=== PATIENT | male | born 1980 ===

== ENCOUNTER 2017-01-14 17:39 | Inpatient (IN) ==
--- NOTE | 2017-01-14 18:14 | Emergency Department Note ---
Laly Hobbs Hilary, am scribing for, and in the presence of, Aguila Penn MD 18:05. Fili Hobbs Phillip K, MD, personally performed the services described in this documentation, ascribed by Sweetie Ruffin in my presence, and it is both accurate and complete 814 . Arrival - Arrival Chief Complaint: Weakness Stated Complaint: TRANSFER FROM [facility] DKA ED Nursing Triage Note: PT TRANSFERRED FROM [facility] FOR EVALUATION OF DKA. PT PRESENTED TO [facility] WITH WEAKNESS, ABD PAIN, INC THIRST AND URINATION. PT REPORTS BEING OUT OF INSULIN FOR APPROX 1 WEEK. +SERUM KETONES WITH INITIAL GLUCOSE OF 444MG/DL AT [facility]. Mode of Arrival: Stretcher Limitations: No Limitations Source: Patient, RN Notes Reviewed - History of Present Illness HPI Narrative: Pt is a 36 y/o male brought to the ED via EMS from [facility] with c/o weakness and abdominal pain. Pt states he has been out of Insulin for approx 1 week. Positive serum ketones with initial glucose of 444MG/DL at [facility]. Records state he received PO & IV potassium, 10 units of Insulin and 1 liter of fluid. Pt states that the last time he was DKA was 8 months ago. Pt has a PMHx of HTN and takes medication as prescribed. Patient also reports some vomiting. Patient's last time it DKA was 8 months ago. Accu-Chek on arrival to the ED was 282 here. Patient's drug screen was negative and alcohol was negative at [place]. Patient's white blood count was 13,000. Allergies/Adverse Reactions: Allergies Allergy/AdvReac Type Severity Reaction Status Date / Time No Known Allergies Allergy Verified 01/14/17 17:50 Home Medications: Home Medications Medication Instructions Recorded Confirmed Type Insulin NPH [HumuLIN N] 25 unit SUBCUT AC SUPPER 30 Days 05/13/16 Rx Insulin NPH [HumuLIN N] 30 unit SUBCUT AC BREAKFAST 30 Days 05/13/16 Rx Review of System - Review of System 12 point system: reviewed and no additional remarkable complaints except as stated - Review of System Constitutional: Present: weakness. Absent: fever Gastrointestinal: Present: abdominal pain, vomiting Medical,Surgical,& Family Hx - Medical History Cardio: History of: Hypertension Endocrine: History of: Diabetes Mellitus (IDDM) Other: Comment Only: Miscellaneous Medical Problems (left ankle sx and lower jaw sx) - Family History Family History: Reports;: Family Diabetes (mother), Family Hypertension - Social History Smoking Status: Never smoker Frequency of Alcohol Use: Occasionally Type of Drug Use: None Exam Vital Signs: Vital Signs Temperature 99.8 F H 01/14/17 17:39 Pulse Rate 138 H 01/14/17 17:39 Respiratory Rate 16 01/14/17 17:39 Blood Pressure 138/100 01/14/17 17:39 O2 Sat by Pulse Oximetry 99 01/14/17 17:39 - General General appearance: alert, in no apparent distress - Head Head exam: Present: atraumatic, normocephalic - Eye Eye exam: Present: normal appearance, PERRL, EOMI - ENT ENT exam: Present: mucous membranes dry, TM's normal bilaterally - Neck Neck exam: Present: full ROM, trachea midline. Absent: tenderness - Chest Chest inspection: Present: symmetric chest wall rise. Absent: tenderness - Respiratory Respiratory exam: Present: normal lung sounds bilaterally. Absent: respiratory distress - Cardiovascular Cardiovascular exam: Present: normal rhythm, tachycardia, normal heart sounds. Absent: murmur, rubs, gallop - Abdominal Exam Abdominal exam: Present: soft, normal bowel sounds. Absent: distention, tenderness - Extremities Exam Extremities exam: Present: full ROM. Absent: tenderness, pedal edema - Back Exam Back exam: Present: full ROM. Absent: tenderness - Neurological Exam Neurological exam: Present: alert, oriented X3, CN II-XII intact. Absent: motor sensory deficit - Psychiatric Psychiatric exam: Present: normal affect, normal mood - Skin Skin exam: Present: warm, dry, intact, normal color. Absent: rash Disposition Clinical Impression: Diabetic ketoacidosis, Hypokalemia Case discussed with: patient Disposition: Still a Patient Condition: Guarded Additional Instructions: Admitted to the hospitalist.
[2017-01-14] MEDS ORDERED: SODIUM CHLORIDE 0.9% 1,000 ML IV STA (18:15)
[2017-01-14] MEDS ORDERED: DEXTROSE 50% 25 GM/50 ML VIAL IV PRN ×2 (18:56)
[2017-01-14] MEDS ORDERED: ALBUTEROL 2.5 MG/3 ML NEB RESP TX PRN (18:56)
[2017-01-14] MEDS ORDERED: ACETAMINOPHEN 325 MG TABLET PO PRN (18:56)
[2017-01-14] MEDS ORDERED: MAGNESIUM SULF RIDER 2 GM in PREMIX 1 EACH IV PRN (18:56)
[2017-01-14] MEDS ORDERED: SODIUM PHOSPHATE INJ 16.2 MMOL in SODIUM CHLORIDE 0.9% 250 ML IV PRN (18:56)
[2017-01-14] MEDS ORDERED: MAGNESIUM SULF RIDER 4 GM in PREMIX 1 EACH IV PRN (18:56)
[2017-01-14] MEDS ORDERED: SODIUM BICARB INJ 100 MEQ in STERILE WATER INJ 400 ML IV PRN (18:56)
[2017-01-14] MEDS ORDERED: PANTOPRAZOLE 40 MG VIAL IV SCH (19:00)
--- NOTE | 2017-01-14 19:09 | Hospitalist History & Physical ---
Assessment and Plan (1) DKA (diabetic ketoacidoses) Status: Acute Current Visit: No (2) Hypertension Status: Acute Current Visit: No (3) Hypokalemia Status: Acute Assessment and plan: Our plan for this patient will be admission ICU. Patient be put on insulin infusion that will be adjusted based on his Accu-Cheks. Fluids will be adjusted as needed based on Accu-Cheks. We will keep him n.p.o. for now. His gap should close fairly quickly. Get diabetic education to come talk with him. He does not need to be holding his insulin for 2 weeks. Reevaluate patient in the morning and adjust plans as as appropriate Current Visit: Yes History of Present Illness Chief complaint: Transfer from [facility] History of present illness: Mr. Torres is a 36 year old male with past medical history significant for diabetes and hypertension who was in his normal state of health approximately 1 week ago. Patient reports that he has been a diabetic since April of last year. He reports that he ran out of his insulin approximately 2 weeks ago. He just would make time to get his medications. He has been feeling nausea and having abdominal pain for past couple days. He thought his symptoms were mild went to [facility] to get his prescriptions and they thomas some labs patient was found to be in DKA. He was transferred to our hospital for further evaluation I was consulted to admit him to the emergency room. Home Medications Medication Instructions Recorded Confirmed Type Insulin NPH [HumuLIN N] 25 unit SUBCUT AC SUPPER 30 Days 05/13/16 Rx Insulin NPH [HumuLIN N] 30 unit SUBCUT AC BREAKFAST 30 Days 05/13/16 Rx Allergies Allergy/AdvReac Type Severity Reaction Status Date / Time No Known Allergies Allergy Verified 01/14/17 17:50 Medical,Surgical,& Family Hx - Medical History Cardio: History of: Hypertension Endocrine: History of: Diabetes Mellitus (IDDM) Other: Comment Only: Miscellaneous Medical Problems (left ankle sx and lower jaw sx) - Surgical History Orthopedic Surgeries: Surgical HX of;: Orthopedic Surgery - Family History Family History: Reports;: Family Diabetes (mother), Family Hypertension - Social History Smoking Status: Never smoker Frequency of Alcohol Use: Occasionally Type of Drug Use: None 12 point system: reviewed and no additional remarkable complaints except as stated Exam - Constitutional General appearance: over weight, other (Patient is a male but appears feminine) - Head Head exam: Present: normal inspection - Eye Eye exam: Present: EOMI Pupils: Present: KATRIN - ENT ENT exam: Present: normal exam - Neck Neck exam: Present: normal inspection - Respiratory Respiratory exam: Present: clear to auscultation bilaterally - Cardiovascular Cardiovascular exam: Present: tachycardia - GI/Abdominal GI/Abdominal exam: Present: normal bowel sounds - Extremities Exam Extremities exam: Present: normal inspection - Back Exam Back exam: Present: normal inspection - Neurological Exam Neurological exam: Present: alert - Psychiatric Psychiatric exam: Present: normal affect - Skin Skin exam: Present: normal color Results - Labs Labs: Labs from outside facility negative drug screen total protein 7.6 calcium 8.1 creatinine 1.4 BUN 11 sodium 125 potassium 2.8 chloride 87 bicarb 11 total bili 1.5 alk phos 113 SGOT 29 SGPT 39 glucose 441 white count 13.2 hemoglobin 15.7 hematocrit 45 platelets 185
[2017-01-14] MEDS ORDERED: SODIUM CHLORIDE 0.9% 1,000 ML IV SCH (19:30)
[2017-01-14] MEDS: INSULIN REGULAR DRIP 100 ML IV SCH (19:31)
[2017-01-14 19:59] LABS: Basophils % 0.2 % (0.0-0.8); Hematocrit 38.3 VOL% (42.0-52.0); Hemoglobin 13.6 GM/DL (14.0-18.0); Immature Granulocytes % 0.5 %; Immature Granulocytes Absolute 0.06 #; Lymphocytes # 0.8 10*3/uL (1.4-4.0); Lymphocytes % 6.8 % (21.2-54.2); Mean Corpuscular HGB Conc 35.5 GM/DL (32-36); Mean Corpuscular Hemoglobin 31 PG (27-34); Mean Corpuscular Volume 86.7 FL (87-102); Mean Platelet Volume 11.2 FL (9.6-12.0); Monocytes # 0.6 10*3/uL (0.11-0.8); Monocytes % 5.4 % (1.7-12.7); Neutrophils # 9.7 10*3/uL (1.4-7.4); Neutrophils % 87.1 % (38.7-73.9); Platelet Count 162 T/CUMM (130-400); Red Blood Count 4.42 MC/CUMM (3.8-5.5); Red Cell Distribution Width 13.4 % (9.3-17.3); White Blood Count 11.1 T/CUMM (4-12)
[2017-01-14 20:08] LABS: Albumin 2.7 G/DL (3.4-5.0); Bilirubin,Total 0.8 MG/DL (0.2-1.0); Calcium 7.4 MG/DL (8.5-10.1); Osmolality,Calculated 277.1 MOS/KG (273-304); Potassium 3.5 MMOL/L (3.5-5.1); Total Protein 5.8 G/DL (6.4-8.3)
[2017-01-14 20:17] LABS: ABG Base Excess -11.3 MMOL/L (-2.5-2.5); ABG HCO3 11.3 MMOL/L (20-26); ABG Oxygen Saturation 95.7 % (95-100); ABG PH 7.377 (7.35-7.45); ABG PO2 77.4 MM HG (80-95); ABG TCO2 11.9 MMOL/L (23-27); Allen Test Positive; Pt O2 Delivery Device Room Air
[2017-01-14 20:19] LABS: ABG PCO2 19.7 MM HG (35-48)
[2017-01-14] MEDS: ONDANSETRON 4 MG/2 ML VIAL IV PRN (20:31)
[2017-01-14] MEDS: ENOXAPARIN 40 MG/0.4 ML SYRINGE SUBCUT SCH (20:33)
--- NOTE | 2017-01-14 20:33 | XRay Report ---
History: Shortness of breath Date: 01/14/2017 Study: Chest AP portable Comparison exam: Chest x-ray May 10, 2016 The cardiomediastinal silhouette and pulmonary vasculature are unremarkable. The lungs and pleural spaces are clear. The osseous structures are unremarkable. Impression: No acute cardiopulmonary process. No adverse interval change compared to the previous study PROCEDURE INTERPRETED AT [facility] DEPARTMENT OF RADIOLOGY Final Report Signed by: Dr. Betty Winkler
[2017-01-14] MEDS: DEXTROSE 5% NACL 0.9% 1,000 ML IV SCH (21:19)
[2017-01-14] MEDS: POTASSIUM CHLORIDE RIDER 10 MEQ in PREMIX 1 EACH IV PRN ×2 (22:19→23:26)
[2017-01-14 23:30] LABS: Calcium 7.6 MG/DL (8.5-10.1); Osmolality,Calculated 275.8 MOS/KG (273-304); Potassium 2.9 MMOL/L (3.5-5.1)
[2017-01-15] MEDS: POTASSIUM CHLORIDE RIDER 10 MEQ in PREMIX 1 EACH IV PRN ×4 (00:35→08:30)
[2017-01-15] MEDS: DEXTROSE 5% NACL 0.9% 1,000 ML IV SCH (04:15)
[2017-01-15 05:04] LABS: Basophils % 0.4 % (0.0-0.8); Hematocrit 36.6 VOL% (42.0-52.0); Hemoglobin 12.8 GM/DL (14.0-18.0); Immature Granulocytes % 0.5 %; Immature Granulocytes Absolute 0.04 #; Lymphocytes # 0.8 10*3/uL (1.4-4.0); Lymphocytes % 10.3 % (21.2-54.2); Mean Corpuscular Hemoglobin 31 PG (27-34); Mean Corpuscular Volume 87.8 FL (87-102); Mean Platelet Volume 10.8 FL (9.6-12.0); Monocytes # 0.5 10*3/uL (0.11-0.8); Monocytes % 6.7 % (1.7-12.7); Neutrophils % 82.1 % (38.7-73.9); Platelet Count 146 T/CUMM (130-400); Red Blood Count 4.17 MC/CUMM (3.8-5.5); Red Cell Distribution Width 13.5 % (9.3-17.3); White Blood Count 7.3 T/CUMM (4-12)
[2017-01-15 05:31] LABS: Band Neutrophils 8 % (0-10); Hypochromasia 1+; Lymphocytes 11 % (20-55); Nucleated Red Blood Cells 1 (0-5); Platelet Estimate Normal; Segmented Neutrophils 72 % (50-85); Total Cells Counted 100
[2017-01-15 05:36] LABS: Calcium 7.7 MG/DL (8.5-10.1); Osmolality,Calculated 279.4 MOS/KG (273-304); Potassium 2.8 MMOL/L (3.5-5.1)
[2017-01-15 05:37] LABS: Magnesium 1.9 MG/DL (1.8-2.4); Phosphorous 1.2 MG/DL (2.5-4.9)
[2017-01-15] MEDS: INSULIN REGULAR DRIP 100 ML IV SCH (06:07)
[2017-01-15 08:01] LABS: Allen Test Positive
[2017-01-15 08:02] LABS: ABG Base Excess -4.4 MMOL/L (-2.5-2.5); ABG HCO3 18.8 MMOL/L (20-26); ABG Oxygen Saturation 97.7 % (95-100); ABG PCO2 29.5 MM HG (35-48); ABG PH 7.422 (7.35-7.45); ABG PO2 100.1 MM HG (80-95); ABG TCO2 19.7 MMOL/L (23-27)
--- NOTE | 2017-01-15 08:37 | Hospitalist Progress Note ---
Assessment and Plan (1) DKA (diabetic ketoacidoses) Status: Acute Assessment and plan: Labs and insulin coverage. Patient apparently has some insulin reserves and down both episodes of ketoacidosis has reversed rapidly and had moderated acidemia. At this time other than the emesis there is no explanation for the hypokalemia. Current Visit: No Qualifiers: Diabetes mellitus type: type 1 Hospitalist: Subjective Interval history: 36-year-old male diagnosed with diabetes in April 2016 initially did on insulin therapy and instructed in diabetic management. Patient states that he had discontinued his insulin in October. Recently he has noticed this nausea with vomiting. His sister is a nurse and noticed changes felt to be consistent with DKA. Patient presented to the [facility] with an anion gap mildly elevated total CPK with no MB fraction and a blood sugar of 441. His white count was mildly elevated. Drug screen was unremarkable he was acetone positive with a CO2 content of 11 and a potassium of 2.8. Patient was transferred to this facility received IV insulin infusion with correction of hyperglycemia and closure of his anion gap. Initial arterial blood gases performed here were consistent with metabolic acidosis he is currently had a normal pH with mild respiratory alkalosis. He has no nausea this morning vital signs are stable and he is afebrile. Exam - Constitutional Vitals: Period Temp Pulse Resp BP Sys/Mas Pulse Ox Last 24 Hr 97.9 F-101.8 F 96-143 16-32 108-157/74-104 26-100 General appearance: over weight - Respiratory Respiratory exam: Present: clear to auscultation bilaterally. Absent: rales, rhonchi, wheezes - Cardiovascular Cardiovascular exam: Present: regular rate and rhythm - GI/Abdominal GI/Abdominal exam: Present: normal bowel sounds. Absent: distended, tenderness - Extremities Exam Extremities exam: Absent: edema - Neurological Exam Neurological exam: Present: alert, oriented X3 Results - Labs CBC & BMP: 01/15/17 04:37 01/15/17 04:37 Labs: PH 7.42 PCO2 30 PO2 100 base excess -4 - Impressions From [facility] sinus rhythm with normal electrocardiographic pattern - Diagnostic Findings Procedure: Chest x-ray: image reviewed by me (Normal heart size and clear lung field)
[2017-01-15] MEDS ORDERED: GLUCAGON 1 MG VIAL IM PRN ×2 (08:44→08:51)
[2017-01-15] MEDS ORDERED: DEXTROSE 50% 25 GM/50 ML VIAL IV PRN ×2 (08:44→08:51)
[2017-01-15] MEDS: POTASSIUM CHLORIDE 20 MEQ/15 ML UDCUP PO SCH ×4 (09:32→21:20)
[2017-01-15] MEDS: INSULIN NPH 100 UNIT/ML SUBCUT SCH ×2 (09:32→17:41)
[2017-01-15 11:52] LABS: Calcium 7.8 MG/DL (8.5-10.1); Osmolality,Calculated 277.8 MOS/KG (273-304); Potassium 3.8 MMOL/L (3.5-5.1)
[2017-01-15] MEDS ORDERED: SODIUM CHLORIDE 0.45% 1,000 ML IV SCH (11:56)
[2017-01-15] MEDS: INSULIN REGULAR 100 UNIT/ML SUBCUT SCH ×5 (13:17→21:19)
[2017-01-15] MEDS: ONDANSETRON 4 MG/2 ML VIAL IV PRN ×2 (14:51→21:23)
[2017-01-15 16:57] LABS: Calcium 7.9 MG/DL (8.5-10.1); Osmolality,Calculated 279.7 MOS/KG (273-304); Potassium 3.9 MMOL/L (3.5-5.1)
[2017-01-15] MEDS: ENOXAPARIN 40 MG/0.4 ML SYRINGE SUBCUT SCH (21:20)
[2017-01-16 06:17] LABS: Calcium 7.6 MG/DL (8.5-10.1); Magnesium 1.5 MG/DL (1.8-2.4); Potassium 3.2 MMOL/L (3.5-5.1)
--- NOTE | 2017-01-16 06:49 | Hospitalist Progress Note ---
Assessment and Plan (1) DKA (diabetic ketoacidoses) Status: Acute Assessment and plan: Patient apparently has some insulin reserves and both episodes of ketoacidosis have reversed rapidly and had moderate acidemia. At this time other than the emesis there is no explanation for the hypokalemia. Current Visit: No Qualifiers: Diabetes mellitus type: type 1 Hospitalist: Subjective Interval history: 36-year-old male diagnosed with diabetes in April 2016 was admitted with mild ketoacidosis associated with the labs and insulin therapy at home. He had had vomiting prior to admission and in spite of the acidosis had hypokalemia. Has previously responded rapidly to the rastafari of insulin therapy. With potassium replacement he has had some liquid bowel movements a potassium level has not risen to normal on today's draw. He also has a mild decrease in his serum magnesium level. The diarrhea by his report did not antedate his admission to the hospital. He feels well and his capillary blood glucoses have improved and he is being transitioned to intermediate acting insulin. Anticipated discharge will be held to allow for potassium repletion. We in addition we will give a low dose of Questran for the loose bowel movements. Exam - Constitutional Vitals: Period Temp Pulse Resp BP Sys/Mas Pulse Ox Last 24 Hr 97.4 F-100.2 F 103-129 16-23 121-144/75-95 95-100 General appearance: over weight - Respiratory Respiratory exam: Present: clear to auscultation bilaterally. Absent: rales, rhonchi, wheezes - Cardiovascular Cardiovascular exam: Present: regular rate and rhythm - GI/Abdominal GI/Abdominal exam: Present: normal bowel sounds. Absent: distended, tenderness - Extremities Exam Extremities exam: Absent: edema - Neurological Exam Neurological exam: Present: alert, oriented X3 Results - Labs CBC & BMP: 01/15/17 04:37 01/16/17 05:01 Labs: Magnesium 1.5
[2017-01-16] MEDS ORDERED: MAGNESIUM SULFATE 1 GM/2 ML VIAL IM ONE ×2 (07:00→08:00)
[2017-01-16] MEDS: INSULIN NPH 100 UNIT/ML SUBCUT SCH ×2 (07:35→17:23)
[2017-01-16] MEDS: INSULIN REGULAR 100 UNIT/ML SUBCUT SCH ×7 (08:43→21:55)
[2017-01-16] MEDS: POTASSIUM CHLORIDE 20 MEQ/15 ML UDCUP PO SCH ×4 (08:45→21:55)
[2017-01-16] MEDS: CHOLESTYRAMINE/ASPARTAME 4 GM PACK PO SCH ×2 (10:46→21:55)
[2017-01-16] MEDS: ENOXAPARIN 40 MG/0.4 ML SYRINGE SUBCUT SCH (21:55)
[2017-01-17 07:37] LABS: Calcium 8.2 MG/DL (8.5-10.1); Magnesium 2.3 MG/DL (1.8-2.4); Osmolality,Calculated 278.5 MOS/KG (273-304); Potassium 3.9 MMOL/L (3.5-5.1)
[2017-01-17] MEDS: INSULIN NPH 100 UNIT/ML SUBCUT SCH (08:33)
[2017-01-17] MEDS: INSULIN REGULAR 100 UNIT/ML SUBCUT SCH ×4 (08:34→11:50)
[2017-01-17] MEDS: CHOLESTYRAMINE/ASPARTAME 4 GM PACK PO SCH (09:23)
[2017-01-17 13:14] VITALS: BP 119/84
--- NOTE | 2017-01-17 14:44 | Discharge Summary ---
Hospital Course - Hospital Course Hospital Course: Mr. Torres is a 36 year old male with past medical history significant for diabetes and hypertension. He presented to [facility] with nausea and abdominal pain. He was noted to have a glucose of 4 4 4 mg/dL. he was diagnosed to have a DKA but I do not have any serum or urine ketones level here and I am not able to access his outside record. His blood sugar here was 277 CO2 level 16 pH 7.3 and PCO2 of 19.7 he was treated with insulin. Patient had been noncompliant and was not taking insulin for quite sometimes his hemoglobin A1c would level was 13.1. There was no sign of infection his WBC was 11.1 on admission the next day it was 7.3. He was treated with NPH insulin twice a day 10 units in the morning and units 20 p.m. and the 3 units regular insulin with meals. His blood sugar has improved and his anion gap closed CO2 level is within normal limits. He will be discharged home on current regimen and started back on metformin. He is asked to contact monitor his blood sugar at home and go to his primary health provider. He may need further adjustment of insulin with his activity and home diet. He need to follow-up in the next 1-2 weeks with the primary health provider. Diagnosis - Discharge Diagnosis (1) DKA (diabetic ketoacidoses) Status: Acute (2) Hypertension Status: Acute Discharge Plan - Discharge Data Disposition: Disch To Home/Self Care Discharge Diet: diabetic diet Activity: resume usual activities as tolerated - Discharge Medications New Insulin NPH [HumuLIN N] 10 unit SUBCUT AC BREAKFAST #0 unit Insulin Regular [HumuLIN R] 3 unit SUBCUT TIDAC #20 ml Insulin NPH [HumuLIN N] 20 unit SUBCUT AC SUPPER #20 ml Continue metFORMIN [Glucophage] 500 mg PO BID Discontinued Insulin NPH [HumuLIN N] 20 unit SUBCUT AC SUPPER Insulin NPH [HumuLIN N] 15 unit SUBCUT AC BREAKFAST - Follow Up or Referral - Forms/Instructions Exam - Constitutional Vitals: Period Temp Pulse Resp BP Sys/Mas Pulse Ox Last 24 Hr 97.9 F-99.8 F 92-134 16-20 118-128/77-84 95-99 General appearance: no acute distress - Respiratory Respiratory exam: Present: clear to auscultation bilaterally. Absent: rales, rhonchi - Cardiovascular Cardiovascular exam: Present: regular rate and rhythm. Absent: tachycardia - GI/Abdominal GI/Abdominal exam: Present: normal bowel sounds, soft. Absent: distended, tenderness - Extremities Exam Extremities exam: Present: normal inspection. Absent: edema - Neurological Exam Neurological exam: Present: alert, oriented X3 Discharge Results Labs on day of discharge: Labs from last 24 hours 01/17/17 01/17/17 01/17/17 11:43 07:54 06:25 Sodium 139 Potassium 3.9 Chloride 105 Carbon Dioxide 24 Anion Gap 13.9 BUN 3 L Creatinine 0.70 GFR Calculation 133 BUN/Creatinine Ratio 4.00 L Glucose 191 H POC Glucose 241 H 205 H Calculated Osmolality 278.5 Calcium 8.2 L Magnesium 2.3 01/16/17 01/16/17 20:26 16:28 Sodium Potassium Chloride Carbon Dioxide Anion Gap BUN Creatinine GFR Calculation BUN/Creatinine Ratio Glucose POC Glucose 157 H 166 H Calculated Osmolality Calcium Magnesium DS: Provider Date of admission: 01/14/17 18:20 Primary care physician: Luda Guillory MD Attending physician on admission: Vimal Calvert MD Consults: 01/14/17 18:56 Consult to [facility], Educator [CONS] Routine Reason for Motor And Controls Tester: Diabetes Education Initial Insulin Education Consult Comment: INSULIN EDUCATION Discharging clinician: Jamie Connor MD
--- NOTE | 2017-01-28 08:00 | Physician Query Form ---
CLICK EDIT DOCUMENT TO SELECT QUERY ANSWER --> OK --> SIGN Lola Whitfield RN Clinical Keeler Polygraph Operator W) [phone] (f) [phone] [email or web address] PROVIDERS: Make your selection(s) from the choices in EACH section by typing an "x" and enter comments in the comment section. Please use your independent medical judgment in providing your response. This request does not imply that any particular answer is desired or expected. CLINICAL INDICATORS: (Providers should not edit this section) Pt. admitted with DKA. There is conflicting documentation of the diabetes type. Based on documentation of "diagnosed with diabetes in April 2016" and " Diabetes mellitus type: type 1". Medical records from [facility] state "type 2 diabetes mellitus". Please clarify the type of diabetes. Based on the above, could you clarify the appropriate diagnosis, if significant , that supports the above abnormalities and additional evaluation, monitoring, and/or treatment rendered: ( x) Pt. has Type 2 diabetes mellitus ( ) Pt. has Type 1 diabetes mellitus ( ) Other, please specify: ( ) Clinically unable to determine COMMENTS: Use of terms such as suspected, likely, or probable (associated with a specific diagnosis that is being evaluated, monitored, or treated as if it exists) are acceptable and can be restated in the discharge summary if not ruled out. MTDD
== END 2017-01-17 16:06 | disposition home or self-care (01) | DRG 638 ==
LOC: EDUNIT# → EDBD → N.ED 17:39 → N.EDINP 18:20 → SUATTDRO 18:20 → N.ICU 18:40 → N.4E 01-15 10:55
PROVIDERS: ADMIT Internal Medicine Cardiovascular Disease; ATTEND Internal Medicine

== ENCOUNTER 2021-12-01 19:04 | Inpatient (IN) ==
[2021-12-01] MEDS ORDERED: GLUCAGON 1 MG VIAL IM PRN (22:18)
[2021-12-01] MEDS ORDERED: ACETAMINOPHEN 325 MG TABLET PO PRN (22:24)
[2021-12-01] MEDS ORDERED: ONDANSETRON 4 MG/2 ML VIAL IV PRN (22:24)
[2021-12-01] MEDS ORDERED: SIMETHICONE CHEW 125 MG TABLET PO PRN (22:24)
[2021-12-01] MEDS ORDERED: hydrALAZINE 20 MG/1 ML VIAL IV PRN (22:24)
[2021-12-01] MEDS ORDERED: ENOXAPARIN 40 MG/0.4 ML SYRINGE SUBCUT SCH (22:30)
[2021-12-01] MEDS ORDERED: MAGNESIUM SULF RIDER 4 GM/100 ML PREMIX IV PRN (22:33)
[2021-12-01] MEDS ORDERED: POTASSIUM CHLORIDE RIDER 10 MEQ/100 ML PREMIX IV PRN (22:33)
[2021-12-01] MEDS ORDERED: MAGNESIUM SULF RIDER 2 GM/50 ML PREMIX IV PRN (22:33)
[2021-12-01] MEDS ORDERED: DEXTROSE 10% 250 ML BAG IV PRN (22:39)
[2021-12-01] MEDS ORDERED: FUROSEMIDE 40 MG/4 ML VIAL IV ONE (23:15)
[2021-12-02 00:09] LABS: Basophils # 0.1 10*3/uL (0.0-0.2); Basophils % 1.1 % (0.0-0.8); Eosinophils # 0.1 10*3/uL (0.0-0.87); Eosinophils % 1.1 % (0.00-10.9); Hematocrit 41.7 VOL% (42.0-52.0); Hemoglobin 13.6 GM/DL (14.0-18.0); Immature Granulocytes % 0.2 %; Immature Granulocytes Absolute 0.01 #; Lymphocytes # 0.9 10*3/uL (1.4-4.0); Lymphocytes % 18.7 % (21.2-54.2); Mean Corpuscular HGB Conc 32.6 GM/DL (32-36); Mean Platelet Volume 9.2 FL (9.6-12.0); Neutrophils % 71.9 % (38.7-73.9); Platelet Count 152 T/CUMM (130-400); Red Blood Count 4.17 MC/CUMM (3.8-5.5); Red Cell Distribution Width 14.7 % (9.3-17.3); White Blood Count 4.6 T/CUMM (4-12)
[2021-12-02] MEDS: cefTRIAXone 1,000 MG in SODIUM CHLORIDE 0.9% 100 ML IV SCH ×2 (00:26→23:00)
[2021-12-02 00:36] LABS: Albumin 3.2 G/DL (3.4-5.0); Calcium 7.5 MG/DL (8.5-10.1); Osmolality,Calculated 276.4 MOS/KG (273-304); Potassium 4.2 MMOL/L (3.5-5.1); Total Protein 7.4 G/DL (6.4-8.2)
[2021-12-02] MEDS ORDERED: LORazepam 2 MG/1 ML VIAL IV PRN (01:40)
[2021-12-02 01:43] LABS: INR 1.2; PT Patient Result 13.1 SECS (10.5-12.0); Partial Thromboplastin Time 32.9 SECS (23.8-32.1)
[2021-12-02 05:29] LABS: Basophils # 0.1 10*3/uL (0.0-0.2); Basophils % 1.3 % (0.0-0.8); Eosinophils # 0.1 10*3/uL (0.0-0.87); Hematocrit 41.4 VOL% (42.0-52.0); Hemoglobin 13.6 GM/DL (14.0-18.0); Immature Granulocytes % 0.2 %; Immature Granulocytes Absolute 0.01 #; Lymphocytes # 0.9 10*3/uL (1.4-4.0); Lymphocytes % 18.2 % (21.2-54.2); Mean Corpuscular HGB Conc 32.9 GM/DL (32-36); Mean Corpuscular Volume 99.5 FL (87-102); Monocytes % 8.4 % (1.7-12.7); Neutrophils % 70.9 % (38.7-73.9); Platelet Count 153 T/CUMM (130-400); Red Blood Count 4.16 MC/CUMM (3.8-5.5); Red Cell Distribution Width 14.6 % (9.3-17.3); White Blood Count 4.8 T/CUMM (4-12)
[2021-12-02 05:50] LABS: Albumin 3.1 G/DL (3.4-5.0); Bilirubin,Direct 1.62 MG/DL (0.0-0.20); Bilirubin,Total 3.6 MG/DL (0.20-1.00); Total Protein 7.4 G/DL (6.4-8.2)
[2021-12-02 06:01] LABS: Albumin 3.1 G/DL (3.4-5.0); Bilirubin,Total 3.3 MG/DL (0.20-1.00); Calcium 8.1 MG/DL (8.5-10.1); Potassium 3.7 MMOL/L (3.5-5.1); Risk Ratio 2.03; Thyroid Stimulating Hormone 4.54 uIU/ml (0.358-3.74); Total Protein 7.4 G/DL (6.4-8.2); VLDL Cholesterol 12.4 MG/DL
[2021-12-02] MEDS: POTASSIUM CHLORIDE 20 MEQ TABLET PO PRN (06:58)
[2021-12-02] MEDS ORDERED: PANTOPRAZOLE 40 MG TABLET PO SCH (09:00)
[2021-12-02] MEDS ORDERED: chlordiazePOXIDE 25 MG CAPSULE PO SCH (09:00)
[2021-12-02] MEDS: SACUBITRIL/VALSARTAN 49-51 MG TABLET PO SCH ×2 (09:13→22:13)
[2021-12-02] MEDS: FUROSEMIDE 40 MG/4 ML VIAL IV SCH ×2 (09:13→15:59)
[2021-12-02] MEDS: DOCUSATE SODIUM 100 MG CAPSULE PO SCH ×2 (09:13→22:13)
[2021-12-02] MEDS: INSULIN REGULAR 100 UNIT/ML SUBCUT SCH ×4 (09:14→22:14)
[2021-12-02] MEDS ORDERED: ACETAMINOPHEN 500 MG TABLET PO PRN (09:33)
[2021-12-02 11:08] LABS: % Iron Saturation 38.2 % (18-50)
[2021-12-02] MEDS: SPIRONOLACTONE 100 MG TABLET PO SCH (11:36)
[2021-12-02 14:37] LABS: Hepatitis B Core IgM Quant 0.15 Index; Hepatitis B Surface Ag Result Non-Reactive (NonReactive); Hepatitis C Virus Ab Quant 0.09 Index; Hepatitis C Virus Ab Result Non-Reactive (NonReactive)
[2021-12-02] MEDS: PANTOPRAZOLE 40 MG TABLET PO SCH (22:13)
[2021-12-03 06:26] LABS: Basophils # 0.1 10*3/uL (0.0-0.2); Basophils % 1.3 % (0.0-0.8); Eosinophils % 0.6 % (0.00-10.9); Hematocrit 42.5 VOL% (42.0-52.0); Hemoglobin 14.3 GM/DL (14.0-18.0); Immature Granulocytes % 0.4 %; Immature Granulocytes Absolute 0.02 #; Lymphocytes # 0.7 10*3/uL (1.4-4.0); Lymphocytes % 13.8 % (21.2-54.2); Mean Corpuscular HGB Conc 33.6 GM/DL (32-36); Mean Corpuscular Volume 97.9 FL (87-102); Monocytes % 9.2 % (1.7-12.7); Neutrophils % 74.7 % (38.7-73.9); Platelet Count 158 T/CUMM (130-400); Red Blood Count 4.34 MC/CUMM (3.8-5.5); Red Cell Distribution Width 14.2 % (9.3-17.3); White Blood Count 4.8 T/CUMM (4-12)
[2021-12-03 06:45] LABS: Calcium 8.3 MG/DL (8.5-10.1); Osmolality,Calculated 269.8 MOS/KG (273-304); Potassium 3.1 MMOL/L (3.5-5.1)
[2021-12-03] MEDS: POTASSIUM CHLORIDE 20 MEQ TABLET PO PRN (06:53)
[2021-12-03] MEDS: INSULIN REGULAR 100 UNIT/ML SUBCUT SCH ×4 (07:49→20:55)
[2021-12-03] MEDS ORDERED: carvediloL 3.125 MG TABLET PO SCH (08:45)
[2021-12-03] MEDS ORDERED: POTASSIUM CHLORIDE 20 MEQ TABLET PO ONE (10:00)
[2021-12-03] MEDS ORDERED: carvediloL 3.125 MG TABLET PO ONE (10:00)
[2021-12-03] MEDS: FOLIC ACID 1 MG TABLET PO SCH (10:12)
[2021-12-03] MEDS: SPIRONOLACTONE 100 MG TABLET PO SCH (10:12)
[2021-12-03] MEDS: MULTIVITAMIN (CENTRUM) TABLET PO SCH (10:13)
[2021-12-03] MEDS: SACUBITRIL/VALSARTAN 49-51 MG TABLET PO SCH ×2 (10:13→21:22)
[2021-12-03] MEDS: DOCUSATE SODIUM 100 MG CAPSULE PO SCH ×2 (10:14→21:22)
[2021-12-03] MEDS: FUROSEMIDE 40 MG/4 ML VIAL IV SCH ×2 (10:14→19:39)
[2021-12-03] MEDS: THIAMINE 100 MG TABLET PO SCH (10:15)
[2021-12-03] MEDS: PANTOPRAZOLE 40 MG TABLET PO SCH ×2 (10:15→21:22)
[2021-12-03 10:16] LABS: Neutrophils,Peritoneal Fluid 9 %
[2021-12-03 10:18] LABS: RBC,Peritoneal Fluid 1527 T/CUMM
[2021-12-03] MEDS ORDERED: MAGNESIUM SULF RIDER 2 GM/50 ML PREMIX IV ONE (10:30)
[2021-12-03] MEDS: FUROSEMIDE 40 MG TABLET PO SCH (18:31)
[2021-12-03] MEDS: carvediloL 6.25 MG TABLET PO SCH (18:31)
[2021-12-03] MEDS: cefTRIAXone 1,000 MG in SODIUM CHLORIDE 0.9% 100 ML IV SCH (23:29)
[2021-12-04 05:48] LABS: Basophils # 0.1 10*3/uL (0.0-0.2); Basophils % 1.2 % (0.0-0.8); Eosinophils # 0.1 10*3/uL (0.0-0.87); Eosinophils % 3.5 % (0.00-10.9); Hematocrit 37.9 VOL% (42.0-52.0); Hemoglobin 12.7 GM/DL (14.0-18.0); Immature Granulocytes % 0.2 %; Immature Granulocytes Absolute 0.01 #; Lymphocytes # 0.9 10*3/uL (1.4-4.0); Lymphocytes % 22.3 % (21.2-54.2); Mean Corpuscular HGB Conc 33.5 GM/DL (32-36); Mean Corpuscular Volume 98.2 FL (87-102); Mean Platelet Volume 9.9 FL (9.6-12.0); Monocytes % 13.6 % (1.7-12.7); Neutrophils % 59.2 % (38.7-73.9); Platelet Count 130 T/CUMM (130-400); Red Blood Count 3.86 MC/CUMM (3.8-5.5); Red Cell Distribution Width 14.2 % (9.3-17.3)
[2021-12-04 06:11] LABS: Calcium 7.7 MG/DL (8.5-10.1); Osmolality,Calculated 270.1 MOS/KG (273-304); Potassium 3.9 MMOL/L (3.5-5.1)
[2021-12-04] MEDS: INSULIN REGULAR 100 UNIT/ML SUBCUT SCH ×2 (07:28→11:30)
[2021-12-04] MEDS ORDERED: BISACODYL 10 MG SUPP RECTAL ONE (08:30)
[2021-12-04] MEDS: MULTIVITAMIN (CENTRUM) TABLET PO SCH (09:27)
[2021-12-04] MEDS: SPIRONOLACTONE 100 MG TABLET PO SCH (09:27)
[2021-12-04] MEDS: FUROSEMIDE 40 MG TABLET PO SCH (09:27)
[2021-12-04] MEDS: FOLIC ACID 1 MG TABLET PO SCH (09:27)
[2021-12-04] MEDS: SACUBITRIL/VALSARTAN 49-51 MG TABLET PO SCH (09:27)
[2021-12-04] MEDS: THIAMINE 100 MG TABLET PO SCH (09:27)
[2021-12-04] MEDS: PANTOPRAZOLE 40 MG TABLET PO SCH (09:27)
[2021-12-04] MEDS: DOCUSATE SODIUM 100 MG CAPSULE PO SCH (09:27)
[2021-12-04] MEDS: carvediloL 6.25 MG TABLET PO SCH (09:28)
[2021-12-04 11:59] VITALS: BP 91/68
[2021-12-05 13:51] LABS: Antinuclear Ab, S 0.4 U
[2021-12-06 15:46] LABS: Alpha-1-Antitrypsin, Serum 220 mg/dL (100 - 190)
== END 2021-12-04 15:58 | disposition home health service (06) | DRG 291 ==
LOC: SUATTDRO 21:04 → N.3E 21:04
PROVIDERS: ADMIT Internal Medicine; ATTEND Internal Medicine